=== PATIENT | female | born 1955 | race Hispanic/Latino ===

== ENCOUNTER 2021-11-26 08:56 | Day surgery (SDC) | payer MEDICARE ==
[2021-11-24 11:38] LABS: BASOPHILS % (AUTO) 0.9 % (0.0-5.0); EOSINOPHILS % (AUTO) 5.9 % (0.0-8.0); HEMATOCRIT 39.1 % (36-48); LYMPHOCYTES % (AUTO) 33.2 % (21.0-51.0); MEAN CORPUSCULAR HEMOGLOBIN 30.4 pg (27.0-33.0); MEAN CORPUSCULAR HGB CONC 32.7 g/dL (32.0-36.0); MEAN CORPUSCULAR VOLUME 92.9 fL (79-99); MONOCYTES % (AUTO) 6.2 % (3.0-13.0); NEUTROPHILS % (AUTO) 53.6 % (40.0-77.0); PLATELET COUNT (AUTO) 220 K/uL (130-400); RED BLOOD CELL COUNT(AUTO) 4.21 MIL/uL (4.00-5.50); RED CELL DISTRIBUTION WIDTH 12.8 % (11.0-15.5); WHITE BLOOD COUNT (AUTO) 8.7 K/uL (4.8-10.8)
[2021-11-24 11:39] LABS: APPEARANCE,URINE Clear (CLEAR); BILIRUBIN,URINE Negative (NEGATIVE); COLOR,URINE Yellow (YELLOW); GLUCOSE, URINE (UA) Negative (NEGATIVE); KETONES,URINE Negative (NEGATIVE); LEUKOCYTE ESTERASE ,URINE Small (NEGATIVE); NITRATE,URINE Negative (NEGATIVE); OCCULT BLOOD,URINE Negative (NEGATIVE); PROTEIN,URINE Negative (NEGATIVE); UROBILINOGEN,URINE 0.2 mg/dL (0.2-1.0)
[2021-11-24 11:46] LABS: CREATININE 0.6 mg/dL (0.5-1.5); POTASSIUM 3.3 mmol/L (3.5-5.1)
[2021-11-24 11:46] LABS: BACTERIA,URINE Rare /HPF (None Seen); MUCUS,URINE Rare LPF (None Seen); RBC,URINE 0-1 /HPF (0-1); WBC,URINE 0-1 /HPF (0-1)
[2021-11-24 11:51] LABS: INR 1.02 (0.85-1.15); PROTHROMBIN TIME 11.1 SEC (9.6-11.6)
[2021-11-24 11:52] LABS: PARTIAL THROMBOPLASTIN TIME 26.2 SEC (26.3-35.5)
[2021-11-24 12:17] LABS: B-TYPE NATRIURETIC PEPTIDE 59 pg/mL (0-100)
[2021-11-25 14:29] VITALS: BP 166/86
[~2021-11-26] VITALS: Ht 160 cm; Wt 73.8 kg
[2021-11-26] VITALS (8 sets, daily range): BP systolic 102–163; BP diastolic 54–88
[~2021-11-26 08:56] MED LIST: AEC81 PO; ATOR40TA71 PO; FURO40TA5 PO; METO-408 PO; SACU1TAB PO
[2021-11-26] MEDS ORDERED: 0.9%NACL 1000ML 1,000 ML IV ONE (12:40)
[2021-11-26] MEDS ORDERED: IOHEXOL 350 MG/ML 100ML INFUS..BTL IV ONE (15:57)
[2021-11-26] MEDS ORDERED: HEPARIN 1,000 UNIT VIAL ONE (15:57)
[2021-11-26] MEDS ORDERED: NITROGLYCERIN 50MG VIAL ONE (15:57)
[2021-11-26] MEDS ORDERED: FENTANYL CITRATE PF 50 MCG/1 ML 2ML VIAL ONE (15:58)
[2021-11-26] MEDS ORDERED: MIDAZOLAM HCL 1 MG/ML 2ML VIAL ONE (15:58)
[2021-11-26] MEDS ORDERED: LIDOCAINE HCL 400MG/20ML VIAL ONE (15:58)
[2021-11-26] MEDS ORDERED: HYDRALAZINE 20MG/ML VIAL ONE (16:44)
[2021-11-26] MEDS ORDERED: 0.9%NACL 1000ML 1,000 ML IV SCH (17:00)
== END 2021-11-26 20:34 | disposition home or self-care (01) ==
LOC: DAH 08:56
PROVIDERS: ATTEND Internal Medicine
DX: I42.8 Other cardiomyopathies (principal); I48.91 Unspecified atrial fibrillation; E78.5 Hyperlipidemia, unspecified; I11.0 Hypertensive heart disease with heart failure; I50.9 Heart failure, unspecified; E66.09 Other obesity due to excess calories; Z72.89 Other problems related to lifestyle; Z87.891 Personal history of nicotine dependence; Z85.3 Personal history of malignant neoplasm of breast; Z82.49 Family history of ischemic heart disease and other diseases of the circulatory system; Z68.28 Body mass index [BMI] 28.0-28.9, adult; Z79.01 Long term (current) use of anticoagulants
CPT/HCPCS: 36415; 71045; 80048; 81001; 83880; 85025; 85610; 85730; 93005; 93458; A4215; A4216; A4221; A4222; A4223 ×3; A4606; A4663; C1760; C1894 ×2; J0360; J1644 ×2; J2250; J3010; J3490 ×2; J7030; Q9967; 99156; 99157

== ENCOUNTER 2025-02-01 16:13 | Emergency (ER) | payer OTHER ==
[~2025-02-01] VITALS: Ht 160 cm; Wt 59.9 kg
[~2025-02-01 16:13] MED LIST changes: +LEVO750T90 PO; +SPIR25TA6 PO
[2025-02-01] MEDS: hydroMORPHone 0.5 MG SYG (0.5MG/0.5ML) IVP ONE (16:54)
[2025-02-01 18:59] LABS: BASOPHILS # (AUTO) 0.05 K/uL (0.00-0.20); BASOPHILS % (AUTO) 0.4 % (0.0-5.0); EOSINOPHILS # (AUTO) 0.49 K/uL (0.00-0.70); EOSINOPHILS % (AUTO) 3.9 % (0.0-8.0); HEMATOCRIT 40.1 % (36-48); IMMATURE GRANULOCYTE ABSOLUTE 0.04 K/uL (0-1); LYMPHOCYTES # (AUTO) 2.6 K/uL (1.0-4.8); LYMPHOCYTES % (AUTO) 21.2 % (21.0-51.0); MEAN CORPUSCULAR HEMOGLOBIN 29.1 pg (27.0-33.0); MEAN CORPUSCULAR HGB CONC 33.4 g/dL (32.0-36.0); MONOCYTES # (AUTO) 0.8 K/uL (0.1-1.0); MONOCYTES % (AUTO) 6.1 % (3.0-13.0); NEUTROPHILS # (AUTO) 8.5 K/uL (1.8-7.7); NEUTROPHILS % (AUTO) 68.1 % (40.0-77.0); PLATELET COUNT (AUTO) 236 K/uL (130-400); RED BLOOD CELL COUNT(AUTO) 4.61 MIL/uL (4.00-5.50); RED CELL DISTRIBUTION WIDTH 15.2 % (11.0-15.5); WHITE BLOOD COUNT (AUTO) 12.4 K/uL (4.8-10.8)
[2025-02-01] MEDS: hydroMORPHone 1 MG INJ IVP ONE (19:00)
[2025-02-01 19:07] LABS: CREATININE 0.9 mg/dL (0.5-1.0); POTASSIUM 4.3 mmol/L (3.5-5.1)
[2025-02-01 19:12] LABS: ALBUMIN 3.5 g/dL (3.5-5.0); BILIRUBIN,TOTAL 0.6 mg/dL (0.2-1.0); TOTAL PROTEIN, SERUM 8.5 g/dL (6.0-8.3)
--- NOTE | 2025-02-01 19:47 | NUR ---
TRANSFER CALL PLACED TO [facility] ACCOUNTING METHODS ANALYST TO INITIATE TRANSFER FOR OPHTHALMOLOGY SERVICES. STATES THEY ARE ON DIVERSION AT THIS TIME FOR ANY POSSIBLE INPATIENT CASES. TRANSFER DENIED.
--- NOTE | 2025-02-01 20:02 | NUR ---
TRANSFER CALL PLACED TO [facility]--NO ANSWER AT THIS TIME.
--- NOTE | 2025-02-01 20:04 | NUR ---
TRANSFER CALL PLACED TO R. NO ANSWER AT THIS TIME.
--- NOTE | 2025-02-01 20:35 | NUR ---
TRANSFER CALL PLACED TO [facility] [employer] TIER TO INITIATE EMERGENT TRANSFER FOR OPHTHALMOLOGY SERVICES.
--- NOTE | 2025-02-01 21:06 | ERN ---
General Chief Complaint: Eye Problems Stated Complaint: LT EYE PAIN Time Seen by MD: 16:14 Time Seen by Midlevel: 16:14 Source: patient History of Present Illness Initial Comments Patient is a 69-year-old female with a past medical history of cancer presenting to the emergency department for evaluation of left eye pain and swelling. The patient had a vitrectomy performed at [facility] this past Monday on January 27 2025. Two days later the patient developed swelling and pain to the area that progressively worsened over the next couple of days. She decided to report to the ER today for increased pain. Current medications include moxifloxacin, brimonidine, timolol, prednisolone, and dorzolamide. Allergies: Coded Allergies: pecan nut (Unverified Allergy, Unknown, 05/06/24) Uncoded Allergies: iv contrast (Allergy, Severe, HIVES, 05/06/24) Home Meds Active Scripts Atropine Sulfate (Atropine Sulfate) 1 % Drops, 2 ML OP BID for 5 Days, #5 ML Prov:JAYDA AMIN 02/01/25 Levofloxacin (Levofloxacin) 750 Mg Tablet, 750 MG PO DAILY for 7 Days, #7 TAB 0 Refills Prov:SUE LOWE MD 05/10/24 Reported Medications Spironolactone (Spironolactone) 25 Mg Tablet, 25 MG PO DAILY, TAB 05/06/24 Metoprolol Succinate (Metoprolol Succinate) 25 Mg Tab.er.24h, 25 MG PO DAILY, TAB 11/25/21 Aspirin (ASPIRIN 81 MG ECTAB) 81 Mg Ectab, 81 MG PO DAILY, TAB.EC 11/25/21 Atorvastatin Calcium (Atorvastatin Calcium) 40 Mg Tablet, 40 MG PO DAILY, TAB 11/25/21 Sacubitril/Valsartan (Entresto 24 mg-26 mg Tablet) 1 Each Tablet, 1 EACH PO BID, TAB 11/25/21 Furosemide (Furosemide) 40 Mg Tablet, 40 MG PO DAILY, TAB 11/25/21 Past Medical History Past Medical History: Cancer, Hypertension Past Surgical History: Other Surgical History Other: RIGHT SIDED MASTECTOMY ROS Dictation CONSTITUTIONAL: Negative except for HPI HEAD/FACE: Negative except for HPI EENT: Negative except for HPI RESPIRATORY: Negative except for HPI GASTROINTESTINAL/ABDOMINAL: Negative except for HPI GENITOURINARY: Negative except for HPI MUSCULOSKELETAL: Negative except for HPI INTEGUMENTARY: Negative except for HPI NEUROLOGICAL/PSYCH: Negative except for HPI HEMATOLOGIC/LYMPHATIC: Negative except for HPI All Systems Negative, Except as noted above. 13 point review of systems assessed and all negative except for above. Physical Exam Physical Exam Dictation Vital Signs reviewed General Appearance: Alert, oriented x 3, no acute distress, well developed, nourished. Head and Face: non-traumatic. Eyes: Significant conjunctival chemosis to the left thigh with mild periorbital swelling Ears: Pinnas intact and no signs of trauma or erythema ear canals clear and no discharge TM no erythema Nose: No discharge, no bleeding. Oropharynx: Mouth normal, tongue pink, pharynx clear,no erythema, tonsils no exudates, no abscesses noted, mucous membrane moist Neck: Supple, non-tender, no thyromegaly, no masses, no JVD, no bruits Breast:Deferred Chest:No tenderness, no crepitus, no paradoxical movement, no retractions Lungs:Clear, well-ventilated, symmetric, no rales, no wheezing, no rhonchi, no stridor, good breath sounds bilaterally Heart: Regular rate, regular rhythm, no murmur, no gallops Vascular: no peripheral edema, Abdomen: Soft, positive bowel sounds, nondistended, no guarding, nontender, no rebound, no masses no hepatomegaly, no splenomegaly, no Hernandez's sign, no hernias. Rectal: Deferred Genital: Deferred Neurological: Normal speech, motor function intact, sensory function intact Musculoskeletal: Neck nontender, full range of motion, back nontender, full range of motion, Extremities: nontender, full range of motion Skin: Color pink, dry, no turgor, no rash, no lacerations, no abrasions, no contusions. Lymphatic: Deferred Results Laboratory and Microbiology Lab and Micro Result Laboratory Tests Test 02/01/25 18:48 White Blood Count 12.4 K/uL (4.8-10.8) H Red Blood Count 4.61 MIL/uL (4.00-5.50) Hemoglobin 13.4 g/dL (12.0-16.0) Hematocrit 40.1 % (36-48) Mean Corpuscular Volume 87.0 fL (79-99) Mean Corpuscular Hemoglobin 29.1 pg (27.0-33.0) Mean Corpuscular Hemoglobin Concent 33.4 g/dL (32.0-36.0) Red Cell Distribution Width 15.2 % (11.0-15.5) Platelet Count 236 K/uL (130-400) Mean Platelet Volume 11.5 fL (7.5-10.5) H Immature Granulocyte % (Auto) 0.3 % (0-1) Neutrophils (%) (Auto) 68.1 % (40.0-77.0) Lymphocytes (%) (Auto) 21.2 % (21.0-51.0) Monocytes (%) (Auto) 6.1 % (3.0-13.0) Eosinophils (%) (Auto) 3.9 % (0.0-8.0) Basophils (%) (Auto) 0.4 % (0.0-5.0) Neutrophils # (Auto) 8.5 K/uL (1.8-7.7) H Lymphocytes # (Auto) 2.6 K/uL (1.0-4.8) Monocytes # (Auto) 0.8 K/uL (0.1-1.0) Eosinophils # (Auto) 0.49 K/uL (0.00-0.70) Basophils # (Auto) 0.05 K/uL (0.00-0.20) Absolute Immature Granulocyte (auto 0.04 K/uL (0-1) Nucleated Red Blood Cells 0.0 % (0.0-0.19) Sodium Level 139 mmol/L (136-145) Potassium Level 4.3 mmol/L (3.5-5.1) Chloride Level 102 mmol/L (101-111) Carbon Dioxide Level 33 mmol/L (21-32) H Blood Urea Nitrogen 31 mg/dL (7-18) H Creatinine 0.9 mg/dL (0.5-1.0) Glomerular Filtration Rate Calc 69 mL/min (>90) Random Glucose 117 mg/dL (70-105) H Total Calcium 9.8 mg/dL (8.5-10.1) Total Bilirubin 0.6 mg/dL (0.2-1.0) Aspartate Amino Transf (AST/SGOT) 21 U/L (10-37) Alanine Aminotransferase (ALT/SGPT) 50 U/L (12-78) Alkaline Phosphatase 98 U/L (50-136) Total Protein 8.5 g/dL (6.0-8.3) H Albumin 3.5 g/dL (3.5-5.0) Labs Reviewed?: Yes MDM MDM: Patient is a 69-year-old female with a past medical history of cancer presenting to the emergency department for evaluation of left eye pain and swelling. The patient had a vitrectomy performed at [facility] this past Monday on January 27 2025. Two days later the patient developed swelling and pain to the area that progressively worsened over the next couple of days. She decided to report to the ER today for increased pain. Current medications include moxifloxacin, brimonidine, timolol, prednisolone, and dorzolamide. On physical examination the patient has significant amount of conjunctival chemosis to the left eye with mild periorbital swelling. Intra-ocular pressure was measured and we received a read of 98 to the left eye and 14 to the right eye. Given that the patient had the surgery in [place] at [facility] we contacted the deboner on-call for [facility]. I was connected with an ENT specialist at [facility]. however given the nature of the patient's complaint they recommended contacting deboner which is what I had initially paged for. I was able to speak to the deboner on-call who recommends obtaining an urgent ophthalmological consultation. building analyst/supervisor was contacted and a transfer was initiated. I was able to discuss the case with deboner on-call over at [facility]. She connected me with the physician procurement assistant that she works with and is located here in [place]. The case was discussed with Javier Payne PA-C who recommends comfort measures at this time given that the left eye has been NLP for several months now. The patient was given acetazolamide IV 500 mg in the emergency department and will be discharged home on atropine 1% b.i.d.. Ophthalmology will see her in her clinic on Monday as a walk-in. Differential diagnosis: Endophthalmitis, conjunctivitis, postsurgical complication Rationale: Tests considered and ordered secondary to shared decision making include: Previous outside records reviewed: Old ER visits. Risk of complication and/or morbidity or mortality of patient management: None Medications-Per medication reconciliation Need for hospitalization: Patient does meet criteria for hospitalization. Need for emergency major/minor surgery: No There are no social concerns with this patient. Prescription drug management Prescriptions will include symptomatic care Patient's prior external medical records from other ER visits were reviewed by me as indicated. Prior testing and results from previous visits were reviewed. Prior tests were taken into account with medical decision making and resource utilization, independent historian/historians were used to obtain complete medical history. I independently interpreted the test that were performed, results were reviewed by me and considered findings on radiology if ordered. Medical management and examination interpretation discussions were had by me with other qualified healthcare professionals as indicated for the patient's care. ED Course Orders Procedure Category Date Status Time Hydromorphone 0.5mg PHA 02/01/25 Complete Syg (Dilaudid 0.5mg 17:00 Cbc With Differential LAB 02/01/25 Complete 18:41 Comprehensive LAB 02/01/25 Complete Metabolic Panel 18:41 Hydromorphone 1 Mg PHA 02/01/25 Complete Inj (Dilaudid 1mg Inj 19:00 Acetazolamide 500mg PHA 02/01/25 Complete Vial (Diamox 500mg I 21:30 Ceftriaxone 1g Vial PHA 02/01/25 Complete (Rocephine 1g Inj) 22:30 Current Medications Medications (Trade) Dose Ordered Sig/Ute Route PRN Reason Start Time Stop Time Status Last Admin Dose Admin Acetazolamide Sodium (DIAmox 500MG INJ) 500 mg ONCE ONCE IV 02/01/25 21:30 02/01/25 21:31 DC 02/01/25 21:41 Ceftriaxone Sodium (ROCEphine 1G INJ) 1 gm ONCE ONCE IVPB 02/01/25 22:30 02/01/25 22:31 DC 02/01/25 22:40 Hydromorphone HCl (DiLAUDid 0.5MG INJ) 0.5 mg ONCE ONCE IVP 02/01/25 17:00 02/01/25 17:01 DC 02/01/25 16:54 Hydromorphone HCl (DiLAUDid 1MG INJ) 1 mg ONCE ONCE IVP 02/01/25 19:00 02/01/25 19:01 DC 02/01/25 19:00 Vital Signs Date Time Temp Pulse Resp B/P (MAP) Pulse Ox O2 Delivery O2 Flow Rate FiO2 02/01/25 22:52 98.2 73 17 141/74 96 Room Air* 0 21 02/01/25 21:42 98.4 72 19 137/69 95 Room Air* 0 21 02/01/25 20:30 98.4 67 17 125/65 96 Room Air* 0 02/01/25 19:30 98.4 70 18 119/67 95 Room Air* 0 02/01/25 18:38 98.6 74 20 105/68 96 Room Air* 0 02/01/25 16:26 98.6 70 20 99/66 96 Room Air* 0 02/01/25 16:14 98.6 70 20 96/66 96 Room Air DX & DISP Disposition: Discharge Departure Impression: Primary Impression: Raised intraocular pressure Additional Impression: Chemosis of left conjunctiva Condition: Stable Scripts Atropine Sulfate (Atropine Sulfate) 1 % Drops 2 ML OP BID for 5 Days, #5 ML Prov: JAYDA AMIN 02/01/25 Additional Instructions: Your case was discussed with deboner and physician procurement assistant Javier Payne. Recommendation was atropine 1% twice a day applied to the affected eye. They want you to follow up on Monday to [facility] as a walk-in. They can further evaluate you. [facility] [address] [facility] [address] Referrals: EDUARDO OSHEA (PCP) Time of Disposition: 22:09 I have reviewed the case, and I agree with, Diagnosis and Plan I performed the substantive portion of the visit. I have reviewed and personally made and approve the management plan that is documented in the note by myself or the NELIA. I acknowledge for responsibility for the patient's management plan. JAYDA AMIN Feb 01, 2025 21:06
[2025-02-01] MEDS: acetaZOLAMIDE 500MG VIAL IV ONE (21:41)
--- NOTE | 2025-02-01 22:12 | NUR ---
TRANSFER CALL PLACED TO R FOR STATUS ON TRANSFER REQUEST. STATES THAT THEY SPOKE TO JAYDA AMIN AND RECOMMENDED MEDICATION TO BE ADMINISTERED. FOLLOW-UP TO BE DONE ON THE PATIENT AND REPORTED BACK TO DHR SPECIALIST.
[2025-02-01] MEDS ORDERED: ATRO2DRO7 OP (22:35)
[2025-02-01] MEDS: cefTRIAXone 1G VIAL IVPB ONE (22:40)
[2025-02-01 22:52] VITALS: BP 141/74; PULSE 73; RESP 17; TEMP 98.2; O2SAT 96
--- NOTE | 2025-02-01 23:54 | NUR ---
TRANSFER CALL PLACED TO [facility] TO INFORM THEM THAT THE TRANSFER REQUEST HAS BEEN RESCINDED THE PT. WAS DISCHARGED WITH INSTRUCTIONS TO FOLLOW-UP WITH DR. ARMANDO (HEAT READER) ON MONDAY.
== END 2025-02-01 23:00 | disposition home or self-care (01) ==
LOC: EDH 16:13
DX: H11.422 Conjunctival edema, left eye (principal); I10 Essential (primary) hypertension; Z79.82 Long term (current) use of aspirin; Z79.899 Other long term (current) drug therapy
CPT/HCPCS: 99285; 96374; 96375; 80053; 85025; 36415; 96376; J1120; J1171 ×2; J0696